=== PATIENT | female | born 1940 | race Caucasian/White ===

== ENCOUNTER 2021-07-31 06:02 | Day surgery (SDC) | payer MEDICARE ==
[~2021-07-31] VITALS: Ht 157.5 cm; Wt 68.5 kg
[~2021-07-31 06:02] MED LIST: ATOR80TA59 PO; ELIQ2.5T PO; EZET10TA21 PO; FURO40TA2 PO; LIDOCAINE 1% MDV 20ML VIAL SQ PRN; LR 1,000 ML IV ONE; METO1TAB87 PO; SPIR-10 PO; SYNT50TA PO
[2021-07-31] MEDS ORDERED: LIDOCAINE 2% 100MG/5ML SDV (FOR ANES.) As Ordered ONE (07:11)
[2021-07-31] MEDS ORDERED: propofoL 200 MG/20 ML VIAL As Ordered ONE (07:11)
[2021-07-31] MEDS ORDERED: ONDANSETRON 4MG/2ML VIAL As Ordered ONE (07:12)
[2021-07-31] MEDS ORDERED: ePHEDrine SULFATE 25 MG/5 ML(5MG/ML) SYRINGE As Ordered ONE (08:24)
[2021-07-31] MEDS ORDERED: LR 1,000 ML IV SCH (08:55)
--- NOTE | 2021-07-31 08:56 | RO ---
OPERATIVE NOTE DATE OF OPERATION: 07/31/2021 PREOPERATIVE DIAGNOSIS: Atrial fibrillation. POSTOPERATIVE DIAGNOSIS: Resumption of sinus rhythm. PROCEDURE: Cardioversion. SURGEON: Hugh Carballo MD ANESTHESIOLOGIST: Juan Francisco Lemos CRNA BRIEF HISTORY: Mrs. Addison is a very pleasant, 81-year-old female who now has had persistent atrial fibrillation for several months. She was initially hard to rate control but eventually control was accomplished with combination of amiodarone and metoprolol. Ultimately, though, the amiodarone had to be discontinued because she developed markedly elevated liver function tests. But because she did not feel well in atrial fibrillation and had problems with congestive heart failure, we decided to pursue DC cardioversion. The rationale for the procedure, its potential complications and alternatives were discussed with the patient on an outpatient basis. She previously had signed a consent. PROCEDURE NOTE: Procedure was performed in the recovery room. The patient presented in fasting condition. After appropriate timeouts were taken, she was cardioverted with 200 joules of energy delivered in synchronized fashion. She became mildly hypotensive and required administration of ephedrine but otherwise there were no immediate complications. At the time of my dictation, 12-lead ECG is pending. The expectation is that the patient will be discharged home after a brief observation. We will continue her chronic medications but discontinue metoprolol due to bradycardia (post-conversion HR in high 40's). CONCLUSIONS: Successful cardioversion of atrial fibrillation into sinus rhythm. [facility]
[2021-07-31 09:05] VITALS: BP 151/66
--- NOTE | 2021-08-01 08:54 | ECGEPIP ---
[facility] Test Date: 2021-07-31 Pat Name: BARBY LICONA Department: Room: - Gender: Female [employer] Maintenance Laborer: james : 1940 Requested By: Hugh Carballo Order Number: [id number] Reading MD: Pepe Bales Measurements Intervals [place] Rate: 80 P: [place]: QRS: 20 QRSD: 86 T: 18 QT: 384 QTc: 442 Interpretive Statements underlying atrial fibrillation/flutter with controlled ventricular response Somewhat low limb voltages with slow R wave progression; body habitus versus p pulmonary disease Nonspecific ST/T wave abnormalities. Rhythm change from 08/31/16. Electronically Signed on 08-01-2021 8:54:16 EDT by Pepe Bales
--- NOTE | 2021-08-01 08:55 | ECGEPIP ---
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 Gnosticism of sinus rhythm following cardioversion earlier the same day. Electronically Signed on 08-01-2021 8:55:30 EDT by Pepe Bales
== END 2021-07-31 09:15 | disposition home or self-care (01) ==
LOC: M SDC 06:02
PROVIDERS: ATTEND Internal Medicine Cardiovascular Disease
DX: I48.19 Other persistent atrial fibrillation (principal); I25.10 Atherosclerotic heart disease of native coronary artery without angina pectoris; I11.0 Hypertensive heart disease with heart failure; E78.5 Hyperlipidemia, unspecified; M10.9 Gout, unspecified; E03.9 Hypothyroidism, unspecified; K44.9 Diaphragmatic hernia without obstruction or gangrene; N17.9 Acute kidney failure, unspecified; I50.9 Heart failure, unspecified; I34.9 Nonrheumatic mitral valve disorder, unspecified; Z95.1 Presence of aortocoronary bypass graft; Z79.899 Other long term (current) drug therapy; Z79.01 Long term (current) use of anticoagulants
CPT/HCPCS: 36415; 84132; 92960; 93005; J2405